=== PATIENT | female | born 1980 ===

== ENCOUNTER 2025-02-22 13:51 | Emergency (ER) | payer SELFPAY ==
--- NOTE | 2025-02-22 15:42 | RAD REPORT ---
Procedure: Chest Single View HISTORY: Abdominal pain COMPARISON: none FINDINGS: Left lung bases mildly hazy. Right lung appears clear. No significant pleural effusion noted. The heart is normal size. IMPRESSION: Left lung base appears mildly hazy. PA and lateral chest x-ray recommended.
[2025-02-22] MEDS ORDERED: FENTANYL CITR 100 MCG/2 ML ONE (16:00)
[2025-02-22] MEDS ORDERED: PANTOPRAZOLE 40 MG INJ ONE (16:00)
[2025-02-22] MEDS ORDERED: DIPHENHYDRAMINE 50 MG/ML VIAL ONE (16:00)
[2025-02-22] MEDS ORDERED: METOCLOPRAMIDE 10 MG/2mL INJ ONE (16:00)
[2025-02-22] MEDS ORDERED: NA CHLORIDE 0.9% 500 ML ONE (16:01)
[2025-02-22 16:06] LABS: Absolute Eosinophils 0.1 K/uL (0-0.5); Absolute Lymphocytes (CBC) 1.1 K/uL (0.7-4.9); Absolute Monocytes 0.3 K/uL (0.1-1.3); Absolute Neutrophil 1.9 K/uL (1.8-8.0); Basophils % 1.2 % (0-1.3); Eosinophils % 3.6 % (0-4.4); Hematocrit 35.6 % (36.0-45.0); Hemoglobin 12.1 g/dL (12.0-15.0); Lymphocytes % 32.4 % (15.3-44.8); MCH 30.4 pg (27.0-35.0); MCHC 33.9 g/dL (32.0-36.0); MCV 89.7 fL (80-100); MPV 6.7 fL (7.6-11.3); Monocytes % 9.4 % (3.3-12.3); Neutrophils % 53.4 % (41.7-73.7); Nucleated Red Blood Cells % 0.1 % (0-0); Platelets 193 thou/uL (152-406); RBC Red Blood Cell Count 3.97 M/uL (3.86-4.86); Red Cell Distribution Width 17.9 % (12.1-15.2)
[2025-02-22 16:12] LABS: PT Prothrombin Time 11.1 SECONDS (10-13.0); PTT, Activated Partial Thromb 23.1 SECONDS (27.2-37.4); Protime INR 0.97
[2025-02-22 16:26] LABS: ALT/SGPT 50 U/L (13-56); AST/SGOT 20 U/L (15-37); Alkaline Phosphatase 104 U/L (45-117); Anion Gap 10.5 mEq/L (5.0-15.0); BUN Blood Urea Nitrogen 9 mg/dL (7-18); Bicarbonate 27 mEq/L (21-32); Bilirubin Total 0.2 mg/dL (0.2-1.0); Globulin 3.9 g/dL (2.3-3.5); Glomerular Filtration Rate 74 ml/min (=/>90); Glucose Level 65 mg/dL (74-106); NT PRO-BNP 45 pg/mL (<125); Potassium 3.5 mEq/L (3.5-5.1); Protein, Total 7.9 g/dL (6.4-8.2); Sodium Level 142 mEq/L (136-145)
[2025-02-22] MEDS ORDERED: HYDROCODONE/APAP 7.5/325 MG TAB ONE (16:27)
[2025-02-22 16:29] LABS: Bilirubin Direct < 0.2 mg/dL (0-0.2); Troponin High Sensitivity < 3.0 pg/mL (<58.9)
[2025-02-22] MEDS ORDERED: MORPHINE 4 MG/ML SYR ONE (16:30)
[2025-02-22] MEDS ORDERED: ONDANSETRON 4 MG/2 ML VIAL ONE (16:30)
--- NOTE | 2025-02-22 17:06 | EDPHYS ---
Physician Documentation [facility] Name: Elizabeth Sanderson Age: 44 yrs Sex: Female : 1980 Arrival Date: 02/22/2025 Time: 13:51 Bed 12 Private MD: ED Physician Avelino Hernandez HPI: 02/22 14:25 This 44 yrs old Female presents to ER via Ambulatory with complaints of Arm Pain, cp Black/Tarry Stools. 14:25 The patient presents to the emergency department black colored stools. cp 14:25 Onset: The symptoms/episode began/occurred yesterday, reports 4 episodes. cp 14:25 The patient or guardian complains of pain, that is acute. The complaints affect the cp right arm. 14:25 Context: patient reports PMHX of left arm DVT and is concerned she may have DVT of cp right arm. currently on Lovenox injections with last injection last night. stopped injections today due to black stools. Historical: - Allergies: 14:11 Toradol; ld1 14:11 Lyrica; ld1 14:11 Bactrim; ld1 14:11 Amoxicillin; ld1 - PMHx: 14:11 GI BLEED; THYROID CANCER; BLOOD CLOTS; ld1 - Immunization history:: Adult Immunizations up to date. - Infectious Disease History:: Denies. - Social history:: Smoking status: Patient denies any tobacco usage or history of. ROS: 14:27 Constitutional: Negative for body aches, chills, fever, poor PO intake, cp 14:27 Eyes: Negative for injury, pain, redness, and discharge, cp 14:27 Cardiovascular: Negative for chest pain, edema, palpitations, 14:27 Respiratory: Positive for shortness of breath, on exertion. Negative for cough, wheezing, 14:27 MS/extremity: Positive for pain, of the right arm, 14:27 Abdomen/GI: Positive for nausea, black/tarry stool, Negative for vomiting, diarrhea, cp constipation, 14:27 : Negative for urinary symptoms, 14:27 Neuro: Negative for altered mental status, 14:27 All other systems are negative, Exam: 14:27 ECG was reviewed by the Attending Physician. cp 14:30 Constitutional: The patient appears in no acute distress, alert, awake, cp non-diaphoretic, non-toxic, well developed, well nourished, 14:30 Head/Face: Normocephalic, atraumatic. 14:30 Eyes: Periorbital structures: appear normal, Conjunctiva: normal, no exudate, no injection, Sclera: no appreciated abnormality, Lids and lashes: appear normal, bilaterally, 14:30 ENT: External ear(s): are unremarkable, Nose: is normal, Mouth: Lips: moist, Oral mucosa: moist, Posterior pharynx: Airway: no evidence of obstruction, patent, 14:30 Neck: ROM/movement: is normal, is supple, without pain, no range of motions limitations, 14:30 Chest/axilla: Inspection: normal, 14:30 Cardiovascular: Rate: tachycardic, Rhythm: regular, Edema: is not appreciated, JVD: is not appreciated, 14:30 Respiratory: the patient does not display signs of respiratory distress, Respirations: normal, no use of accessory muscles, no retractions, labored breathing, is not present, Breath sounds: are clear throughout, no decreased breath sounds, no stridor, no wheezing, 14:30 Abdomen/GI: Inspection: abdomen appears normal, Bowel sounds: active, all quadrants, Palpation: soft, in all quadrants, mild abdominal tenderness, in all quadrants, Rectal exam: no stool observed. 14:30 Back: pain, is absent, ROM is normal, 14:30 Skin: cellulitis, is not appreciated, no rash present. 14:30 Neuro: Orientation: to person, place \T\ time. Mentation: is normal, Motor: moves all fours, strength is normal, Sensation: is normal, Vital Signs: 14:10 BP 103 / 73; Pulse 121; Resp 16; Temp 98; Pulse Ox 100% ; ld1 16:45 BP 120 / 75; Pulse 80; Resp 16; Pulse Ox 97% on R/A; jb4 MDM: 14:10 Medical Screening Exam initiated cp 15:00 Differential diagnosis: dvt, cellulitis, pulmonary embolism, anemia, upper GI bleed, cp gastritis. 16:45 Data reviewed: vital signs, nurses notes, lab test result(s), EKG, radiologic studies, cp plain films, ultrasound. 16:45 I considered the following discharge prescriptions or medication management in the emergency department Medications were administered in the Emergency Department. See MAR. Independent interpretation of the following test(s) in the Emergency Department EKG: See my EKG interpretation above. Refusal of service: The patient/guardian displays adequate decision making capability and despite a detailed discussion of alternatives, benefits, risks, and consequences refuses: transfer for GI and vascular surgery consult. 02/22 14:18 Order name: Ptt, Activated; Complete Time: 16:17 cp 02/22 16:18 Interpretation: Reviewed. 02/22 14:18 Order name: Basic Metabolic Panel; Complete Time: 16:40 cp 02/22 16:40 Interpretation: Normal except: CL 108; GLUC 65; GFR 74. cp 02/22 14:18 Order name: CBC with Diff 02/22 16:18 Interpretation: Normal except: WBC 3.50; HCT 35.6; RDW 17.9; MPV 6.7. 02/22 14:18 Order name: LFT's; Complete Time: 16:40 cp 02/22 16:40 Interpretation: Normal except: IBILI, CALC 0.0; GLOB 3.9; A/G 1.0. 02/22 14:18 Order name: Magnesium; Complete Time: 16:40 cp 02/22 14:18 Order name: NT PRO-BNP; Complete Time: 16:40 cp 02/22 14:18 Order name: PT-INR; Complete Time: 16:17 cp 02/22 16:18 Interpretation: Reviewed. 02/22 14:18 Order name: Troponin HS; Complete Time: 16:40 cp 02/22 16:41 Interpretation: Troponin HS < 3.0; Reviewed. 02/22 14:18 Order name: Test, Serum; Complete Time: 16:40 cp 02/22 16:41 Interpretation: Reviewed. 02/22 16:10 Order name: CBC Smear Scan EDRI 02/22 14:18 Order name: XRAY Chest (1 view); Complete Time: 16:17 cp 02/22 14:21 Order name: US Extremity Venous Unilateral Ltd cp 02/22 14:24 Order name: UPPER EXTREMITY VENOUS UNILATE EDRI 02/22 14:18 Order name: EKG; Complete Time: 14:18 cp 02/22 14:18 Order name: EKG - Nurse/Tech; Complete Time: 14:42 cp 02/22 14:18 Order name: IV Saline Lock; Complete Time: 16:45 cp 02/22 14:18 Order name: Labs collected and sent; Complete Time: 16:45 cp 02/22 14:18 Order name: O2 Per Protocol; Complete Time: 14:19 cp 02/22 14:18 Order name: O2 Sat Monitoring; Complete Time: 14:19 cp EC:27 Rate is 108 beats/min. Rhythm is regular. PA interval is normal. QRS interval is cp normal. QT interval is normal. Interpreted by me. Reviewed by me. Administered Medications: 16:14 Drug: NS 0.9% IV 500 ml 500 ml IV at 1 bolus once; to be given as a bolus over 30 jb4 minutes Volume: 500 ml; Route: IV; Rate: 1 bolus; Site: right antecubital; 16:14 Drug: metoCLOPramide IVP 10 mg IVP once; over 1 to 2 minutes Route: IVP; Site: right jb4 antecubital; 16:14 Not Given (Patient Refused): aquyiwarohxvxbg62.5 mg IVP once jb4 16:15 Drug: Pantoprazole IVP 40 mg IVP once Route: IVP; Site: right antecubital; jb4 16:15 Not Given (Pt allergicc): fentanyl (pf)25 mcg IVP once; may give if systolic pressure jb4 above 100 16:28 Not Given (Physician Discretion): hydrocodone-acetaminophen(7.5 mg-325 mg) 1 tabs PO cp once; RASS on ADMIN: Combtv4, Very Agttd3, Agttd2, Rstlss1, AlertClm0, Drwsy-1, Lt Sdtn-2, Mod Sdtn-3, Dp Sdtn-4, UnArsble-5 16:33 Drug: morphine IVP or IV 4 mg IVP once over 4 mins Route: IVP; Infused Over: 4 mins; jb4 Site: right antecubital; 16:34 Drug: Ondansetron IVP 4 mg IVP once; over 2 minutes Route: IVP; Site: right antecubital;jb4 Disposition: 16:04 Co-signature as Attending Physician, Avelino Hernandez MD. [email or web address] Disposition Summary: 02/22/25 17:13 Left Against Medical Advice Notes: Location: Home cp Problem: new(02/22/25 17:13) cp Symptoms: are unchanged(02/22/25 17:13) cp Condition: Stable(02/22/25 17:13) cp Diagnosis - Acute embolism and thrombosis of deep veins of right upper extremity(02/22/25 17:13)cp - GI Bleed/ Gastrointestinal hemorrhage, unspecified(02/22/25 17:13) cp Followup: cp - With: Emergency Department - When: As needed - Reason: Worsening of condition Discharge Instructions: - Discharge Summary Sheet cp - Deep Vein Thrombosis cp - Gastrointestinal Bleeding cp Signatures: Dispatcher [employer] EDMS Demarco Fox em1 Hosea Vazquez PA PA cp Damon Moore, RN RN jb4 Brandie Zaragoza RN RN ld1 Avelino Hernandez MD MD [email or web address] Corrections: (The following items were deleted from the chart) 14:18 14:18 PTT, ACTIVATED+COAG.LAB.BRZ ordered. EDMS EDMS 14:18 14:18 TYPE AND SCREEN+BB.LAB.BRZ ordered. EDMS EDMS 14:18 14:18 BASIC METABOLIC PANEL+C.LAB.BRZ ordered. EDMS EDMS 14:18 14:18 CBC+H.LAB.BRZ ordered. EDMS EDMS 14:18 14:18 HEPATIC FUNCTION+C.LAB.BRZ ordered. EDMS EDMS 14:18 14:18 MAGNESIUM+C.LAB.BRZ ordered. EDMS EDMS 14:18 14:18 PROBNP+C.LAB.BRZ ordered. EDMS EDMS 14:18 14:18 PROTIME (+INR)+COAG.LAB.BRZ ordered. EDMS EDMS 14:18 14:18 Troponin High Sensitivity+C.LAB.BRZ ordered. EDMS EDMS 14:18 14:18 Urinalysis W/Microscopic+U.LAB.BRZ ordered. EDMS EDMS 14:18 14:18 TEST, SERUM+SC.LAB.BRZ ordered. EDMS EDMS 14:42 14:18 Cardiac monitoring ordered. cp jb4 17:11 17:06 doctor cp cp 17:11 17:06 [facility] cp cp 17:11 17:06 Higher level of care cp cp 17:11 17:06 Stable cp cp 17:11 17:06 new cp cp 17:11 17:06 have improved cp cp 17:11 17:06 Acute embolism and thrombosis of deep veins of right upper extremity cp cp 17:11 17:06 GI Bleed/ Gastrointestinal hemorrhage, unspecified cp cp
--- NOTE | 2025-02-22 17:06 | ER ---
Nurse's Notes [facility] Name: Elizabeth Sanderson Age: 44 yrs Sex: Female : 1980 Arrival Date: 02/22/2025 Time: 13:51 Bed 12 Private MD: Diagnosis: Acute embolism and thrombosis of deep veins of right upper extremity;GI Bleed/ Gastrointestinal hemorrhage, unspecified Presentation: 02/22 14:10 Chief complaint: Patient states: ABDOMINAL PAIN AND BLACK STOOLS, ON LOVENOX 2/2 BLOOD ld1 CLOTS. Coronavirus screen: At this time, the client does not indicate any symptoms associated with coronavirus-19. Ebola Screen: No symptoms or risks identified at this time. Initial Sepsis Screen: Does the patient meet any 2 criteria? HR > 90 bpm. No. Patient's initial sepsis screen is negative. Does the patient have a suspected source of infection? No. Patient's initial sepsis screen is negative. Risk Assessment: Do you want to hurt yourself or someone else? Patient reports no desire to harm self or others. Onset of symptoms is unknown. 14:10 Method Of Arrival: Ambulatory ld1 14:10 Acuity: WAQAR 3 ld1 Triage Assessment: 14:11 General: Appears in no apparent distress. uncomfortable, Behavior is calm, cooperative, ld1 appropriate for age. Pain: Complains of pain in abdomen and right arm. EENT: No deficits noted. Neuro: No deficits noted. Cardiovascular: Rhythm is sinus tachycardia. Respiratory: No deficits noted. GI: No signs and/or symptoms were reported involving the gastrointestinal system. : No signs and/or symptoms were reported regarding the genitourinary system. Derm: No deficits noted. Musculoskeletal: No deficits noted. Historical: - Allergies: 14:11 Toradol; ld1 14:11 Lyrica; ld1 14:11 Bactrim; ld1 14:11 Amoxicillin; ld1 - PMHx: 14:11 GI BLEED; THYROID CANCER; BLOOD CLOTS; ld1 - Immunization history:: Adult Immunizations up to date. - Infectious Disease History:: Denies. - Social history:: Smoking status: Patient denies any tobacco usage or history of. Screenin:37 [facility] ED Fall Risk Assessment (Adult) History of falling in the last 3 months, jb4 including since admission No falls in past 3 months (0 pts) Confusion or Disorientation No (0 pts) Intoxicated or Sedated No (0 pts) Impaired Gait No (0 pts) Mobility Assist Device Used No (0 pt) Altered Elimination No (0 pt) Score/Fall Risk Level 0 - 2 = Low Risk Oriented to surroundings, Maintained a safe environment. Abuse screen: Denies threats or abuse. Nutritional screening: No deficits noted. Tuberculosis screening: No symptoms or risk factors identified. Assessment: 15:00 Reassessment: Patient appears in no apparent distress at this time. Patient and/or jb4 family updated on plan of care and expected duration. Pain level reassessed. Patient is alert, oriented x 3, equal unlabored respirations, skin warm/dry/pink. 16:00 Reassessment: Patient appears in no apparent distress at this time. Patient and/or jb4 family updated on plan of care and expected duration. Pain level reassessed. Patient is alert, oriented x 3, equal unlabored respirations, skin warm/dry/pink. 17:00 Reassessment: Patient appears in no apparent distress at this time. Patient and/or jb4 family updated on plan of care and expected duration. Pain level reassessed. Patient is alert, oriented x 3, equal unlabored respirations, skin warm/dry/pink. Pt refusing further medical treatment and wants to leave AMA to transport herself to the receiving hospital. Explained the risk of going AMA and transporting herself. Pt acknowledged and verbalized understanding of risk. Pt signed AMA form. Vital Signs: 14:10 BP 103 / 73; Pulse 121; Resp 16; Temp 98; Pulse Ox 100% ; ld1 16:45 BP 120 / 75; Pulse 80; Resp 16; Pulse Ox 97% on R/A; jb4 ED Course: 13:53 Patient arrived in ED. im 13:55 Hosea Vazquez PA is PHCP. cp 13:55 Avelino Hernandez MD is Attending Physician. cp 14:11 Triage completed. ld1 14:11 Arm band placed on. ld1 14:31 Radiology exam delayed due to pt wants pain meds first. ml6 15:10 XRAY Chest (1 view) In Process Unspecified. EDMS 15:35 Radiology exam delayed due to pain level. ml6 16:21 Radiology exam delayed due to pt pain. jc4 16:52 UPPER EXTREMITY VENOUS UNILATE In Process Unspecified. EDMS 17:38 No provider procedures requiring assistance completed. IV discontinued, intact, jb4 bleeding controlled, No redness/swelling at site. Pressure dressing applied. Patient maintains SpO2 saturation greater than 95% on room air. Administered Medications: 16:14 Drug: NS 0.9% IV 500 ml 500 ml IV at 1 bolus once; to be given as a bolus over 30 jb4 minutes Volume: 500 ml; Route: IV; Rate: 1 bolus; Site: right antecubital; 16:14 Drug: metoCLOPramide IVP 10 mg IVP once; over 1 to 2 minutes Route: IVP; Site: right jb4 antecubital; 16:14 Not Given (Patient Refused): zrtpfuscbnhtmbr39.5 mg IVP once jb4 16:15 Drug: Pantoprazole IVP 40 mg IVP once Route: IVP; Site: right antecubital; jb4 16:15 Not Given (Pt allergicc): fentanyl (pf)25 mcg IVP once; may give if systolic pressure jb4 above 100 16:28 Not Given (Physician Discretion): hydrocodone-acetaminophen(7.5 mg-325 mg) 1 tabs PO cp once; RASS on ADMIN: Combtv4, Very Agttd3, Agttd2, Rstlss1, AlertClm0, Drwsy-1, Lt Sdtn-2, Mod Sdtn-3, Dp Sdtn-4, UnArsble-5 16:33 Drug: morphine IVP or IV 4 mg IVP once over 4 mins Route: IVP; Infused Over: 4 mins; jb4 Site: right antecubital; 16:34 Drug: Ondansetron IVP 4 mg IVP once; over 2 minutes Route: IVP; Site: right antecubital;jb4 Outcome: 17:00 AMA AMA form signed jb4 17:00 Condition: unchanged jb4 17:06 ER care complete, transfer ordered by MD. costa 17:45 Patient left the ED. jb4 Signatures: Dispatcher [employer] EDMS Hosea Vazquez PA PA cp Bryson, James, RN RN jb4 Brandie Zaragoza RN RN ld1 Tania Hanks Megan ml6 Antoine Fisher jc4 Corrections: (The following items were deleted from the chart) 17:37 17:35 Reassessment: Patient appears in no apparent distress at this time. Patient jb4 and/or family updated on plan of care and expected duration. Pain level reassessed. Patient is alert, oriented x 3, equal unlabored respirations, skin warm/dry/pink. jb4
--- NOTE | 2025-02-22 17:27 | RAD REPORT ---
EXAMINATION: UPPER EXTREMITY VENOUS UNILATE CLINICAL INDICATION: Right arm pain TECHNIQUE: Complete bilateral duplex sonography of the right upper extremity veins was performed. The examination included compression for vein patency, color Doppler imaging and flow augmentation in response to distal compression of the internal jugular,, subclavian, axillary, brachial, radial, ulna r, cephalic and basilic veins. .Grayscale, color and spectral analysis performed on all vessels COMPARISON: No prior exam. FINDINGS: Echogenic material consistent with thrombus is present within the right cephalic vein. The vein is no ncompressible. Right internal jugular, subclavian, axillary, brachial, basilic,, radial and ulnar veins are generall y compressible and demonstrate augmentation. Color Doppler demonstrates good flow. IMPRESSION: Acute thrombus right cephalic vein
[2025-02-22 18:27] VITALS: TEMP 98
[2025-02-22 18:29] VITALS: BP 120/75; O2SAT 97
[2025-02-22 20:29] LABS: Blood Morphology Comment NOT SEEN (NOT SEEN); Platelet Estimate ADEQ; White Blood Cell Scan OK (OK)
== END 2025-02-22 17:45 | disposition left against medical advice (07) ==
LOC: ER 13:51
DX: I82.621 Acute embolism and thrombosis of deep veins of right upper extremity (principal); K92.2 Gastrointestinal hemorrhage, unspecified
CPT/HCPCS: 36415; 71045; 80048; 80076; 83735; 83880; 84484; 84703; 85025; 85610; 85730; 93005; 93971; 96374; 96375; 99284; J1200; J2405; J2470; J2765; J3010; J7040